=== PATIENT | female | born 1975 | race African-American/Black ===

== ENCOUNTER 2018-10-12 10:20 | Emergency (ER) | payer MEDICAID ==
[~2018-10-12] VITALS: Ht 157.5 cm; Wt 80.7 kg
[2018-10-12 10:29] VITALS: BP 122/88
[2018-10-12] MEDS ORDERED: KETOROLAC TROMETHAMINE INJ 30 MG/ML VIAL IM ONE (12:00)
== END 2018-10-12 11:45 | disposition home or self-care (01) ==
LOC: ER 10:20
DX: R60.0 Localized edema (principal); G56.01 Carpal tunnel syndrome, right upper limb; Z88.1 Allergy status to other antibiotic agents; Z98.890 Other specified postprocedural states
CPT/HCPCS: 93971-TC; J1885

== ENCOUNTER 2019-12-16 12:07 | Emergency (ER) | payer OTHER ==
[~2019-12-16] VITALS: Ht 157.5 cm; Wt 91.6 kg
--- NOTE | 2019-12-16 12:14 | NUR ---
came in for abd pain x 1 year, worsening in the last 3-4 months 7/10 pain scale radiating to lower back and little vaginal discharges. to ER bed11, hooked to monitor, changed to hosp gown, warm blanket provided, patient aao X 4, breathing even and unlabored, awaiting MD you
--- NOTE | 2019-12-16 12:19 | NUR ---
Dr Greene at bedside
[2019-12-16] MEDS ORDERED: MORPHINE SULFATE INJ 4 MG/ML DISP.SYRIN ONE (12:36)
[2019-12-16] MEDS ORDERED: ONDANSETRON HCL/PF 4 MG/2 ML VIAL ONE (12:36)
--- NOTE | 2019-12-16 12:39 | NUR ---
MANUFACTURING ENGINEERING DIRECTOR AT BEDSIDE FOR JAYRO
[2019-12-16 12:45] LABS: BASOPHILS # (AUTO) 0.1 /CMM (0.0-0.2); BASOPHILS % (AUTO) 1.5 % (0.0-2.0); HEMATOCRIT 40 % (33-45); HEMOGLOBIN 12.9 g/dL (11.5-14.8); LYMPHOCYTES # (AUTO) 1.8 /CMM (0.8-4.8); LYMPHOCYTES % (AUTO) 37.5 % (20.0-44.0); MEAN CORPUSCULAR HGB CONC 33 g/dl (31.0-36.0); MEAN CORPUSCULAR VOLUME 81 fL (82-100); MONOCYTES # (AUTO) 0.4 /CMM (0.1-1.30); MONOCYTES % (AUTO) 8.9 % (2.0-12.0); NEUTROPHILS # (AUTO) 2.5 /CMM (1.8-8.9); NEUTROPHILS % (AUTO) 50.1 % (43.0-81.0); PLATELET COUNT (AUTO) 230 /CMM (150-450); RED BLOOD CELL COUNT(AUTO) 4.86 MIL/uL (4.0-5.2); WHITE BLOOD COUNT (AUTO) 4.9 K/uL (4.3-11.0)
[2019-12-16 13:00] LABS: CALCIUM, SERUM 8.7 mg/dL (8.5-10.1); CREATININE 0.7 mg/dL (0.6-1.3); POTASSIUM 3.8 mmol/L (3.5-5.1)
[2019-12-16] MEDS ORDERED: MORPHINE SULFATE INJ 2 MG/ML DISP.SYRIN IV ONE (13:00)
[2019-12-16] MEDS ORDERED: ONDANSETRON HCL/PF 4 MG/2 ML VIAL IV ONE (13:00)
[2019-12-16 13:06] LABS: ALBUMIN 3.6 g/dL (3.4-5.0); BILIRUBIN,TOTAL 0.1 mg/dL (0.2-1.0); TOTAL PROTEIN, SERUM 7.5 g/dL (6.4-8.2)
[2019-12-16 13:38] LABS: APPEARANCE,URINE CLEAR (CLEAR); BILIRUBIN,URINE NEGATIVE (NEGATIVE); BLOOD, URINE NEGATIVE Ery/uL (NEGATIVE); COLOR,URINE YELLOW (YELLOW); KETONES,URINE NEGATIVE (NEGATIVE); LEUKOCYTE ESTERASE ,URINE NEGATIVE (NEGATIVE); NITRITE, URINE NEGATIVE (NEGATIVE); PH,URINE 5.5 (5.0-8.0); PROTEIN,URINE NEGATIVE (NEGATIVE); UGLUCOSE NEGATIVE (NEGATIVE); UROBILINOGEN,URINE 0.2 EU/dL (0.2)
--- NOTE | 2019-12-16 13:57 | NUR ---
Zion marquez in EDM - 12/16/19 at 1358 by DEEP HARVINDER ADMITTING DEPT RECEIVED VERBAL AUTH FROM [place] [place] TO PROVIDE INFO TO JEFFERSON SANDOVAL SON-IN-LAW
[2019-12-16 14:32] VITALS: BP 123/77
--- NOTE | 2019-12-16 14:32 | NUR ---
Patient discharged to home in stable condition. Written and verbal after care instructions given. Patient verbalizes understanding of instruction.
== END 2019-12-16 14:34 | disposition home or self-care (01) ==
LOC: ER 12:11
DX: D25.9 Leiomyoma of uterus, unspecified (principal); R10.31 Right lower quadrant pain; R10.32 Left lower quadrant pain; Z88.1 Allergy status to other antibiotic agents
CPT/HCPCS: 76856; 80048; 80076; 81001; 84703; 85025; 87491; 87591; 96374; 96375; 99284; J2270; J2405; 81000-TC

== ENCOUNTER 2020-03-05 09:27 | Emergency (ER) | payer MEDICAID, OTHER ==
[~2020-03-05] VITALS: Ht 157.5 cm; Wt 90.7 kg
[2020-03-05 09:38] VITALS: BP 141/83
[2020-03-05] MEDS ORDERED: KETOROLAC TROMETHAMINE INJ 30 MG/ML VIAL ONE (10:47)
--- NOTE | 2020-03-05 10:49 | NUR ---
Given 30mg toradol IM Left deltoid per MD orders
--- NOTE | 2020-03-05 11:04 | NUR ---
Patient discharged to home in stable condition. Written and verbal after care instructions given. Patient verbalizes understanding of instruction.
== END 2020-03-05 11:05 | disposition home or self-care (01) ==
LOC: ER 09:32
DX: M25.462 Effusion, left knee (principal); M25.461 Effusion, right knee; Z98.890 Other specified postprocedural states; Z88.1 Allergy status to other antibiotic agents
CPT/HCPCS: 73562 ×2; 96372; 99283; J1885

== ENCOUNTER 2023-01-29 11:34 | Emergency (ER) | payer OTHER ==
[~2023-01-29] VITALS: Ht 157.5 cm; Wt 93.0 kg
[2023-01-29] MEDS ORDERED: AZIT250T13 PO (12:51)
[2023-01-29] MEDS ORDERED: IBUP-1955 PO (12:51)
[2023-01-29] MEDS ORDERED: BENZ-13 PO (12:51)
[2023-01-29] MEDS ORDERED: AMOX-430 PO (12:51)
[2023-01-29 12:59] VITALS: BP 139/96; TEMP 97.9; O2SAT 100
== END 2023-01-29 13:00 | disposition home or self-care (01) ==
LOC: ER 11:47
DX: J06.9 Acute upper respiratory infection, unspecified (principal); R05.9 Cough, unspecified; R09.81 Nasal congestion; F17.200 Nicotine dependence, unspecified, uncomplicated; Z91.018 Allergy to other foods